=== PATIENT | male | born 2000 | race Caucasian/White ===

== ENCOUNTER 2022-03-18 19:39 | Emergency (ER) | payer MEDICAID ==
[2022-03-18 19:58] VITALS: BP 123/69
--- NOTE | 2022-03-18 20:21 | ED Physician Documentation ---
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 initially severe pain, localized to base of testicle, throbbing quality, nonradiating, better with elevating, worse with movement. denies hx of hernia. endorses some intermittent dysuria. has had pain like this before that self resolved. denies fever, abnormal discharge, foul smell or genital lesions. Review of Systems Constitutional: denies: Fever GI: denies: Abdominal Pain, Nausea : reports: Dysuria, Testicular pain. denies: Hematuria Skin: denies: Lesions Musculoskeletal: reports: Back pain (lower back) PD PAST MEDICAL HISTORY - Past Medical History Cardiovascular: Arrhythmia Respiratory: None Neuro: None Endocrine/Autoimmune: None GI: None : None HEENT: None Psych: Depression, Anxiety, Bipolar disorder Musculoskeletal: None Derm: None - Past Surgical History Past Surgical History: No - Present Medications Home Medications: Ambulatory Orders Medication Instructions Recorded Confirmed No Known Home Medications 03/18/22 03/18/22 - Allergies Allergies/Adverse Reactions: Allergies Allergy/AdvReac Type Severity Reaction Status Date / Time No Known Drug Allergies Allergy Verified 03/18/22 19:58 - Social History Does the pt smoke?: No Smoking Status: Never smoker Does the pt drink ETOH?: No Does the pt have substance abuse?: Yes - Immunizations Immunizations are current?: Yes PD ED PE NORMAL - Vitals Vital signs reviewed: Yes - General General: Alert and oriented X 3, No acute distress, Well developed/nourished - HEENT HEENT: Atraumatic, PERRL, EOMI - Abdomen Abdomen: Non tender - Male Male : Front Tender present (SONNY ribera), Other (normal ext male genitalia. circumcised penis without lesion or deformity. BL cremaster reflex intact. R testicle nontender. L testicle tender to palpation, improving with elevation. normal testicular lie) - Rectal Rectal: Deferred - Back Back: No CVA TTP - Derm Derm: Normal color, Warm and dry, No rash - Extremities Extremities: No deformity - Neuro Neuro: No motor deficit, No sensory deficit - Psych Psych: Normal mood, Normal affect Results - Vitals Vitals: Vital Signs - 24 hr 03/18/22 19:56 Temperature 37.1 C Heart Rate 78 Respiratory 18 Rate Blood Pressure 123/69 O2 Saturation 97 Oxygen O2 Source Room air - Labs Labs: Laboratory Tests 03/18/22 19:53 Urine Color YELLOW Urine Clarity CLEAR Urine pH 6.5 Ur Specific [place] 1.015 Urine Protein NEGATIVE Urine Glucose (UA) NEGATIVE Urine Ketones NEGATIVE Urine Occult Blood NEGATIVE Urine Nitrite NEGATIVE Urine Bilirubin NEGATIVE Urine Urobilinogen 1 (NORMAL) Ur Leukocyte Esterase NEGATIVE Ur Microscopic Review NOT INDICATED Urine Culture Comments NOT INDICATED PD Medical Decision Making - ED course ED course: 22yM p/w L testicular pain. doubt torsion given normal testicular lie and normal cremaster reflex. will obtain u/s to eval for varicocoele or hydrocoele, u/a and STI testing. analgesia provided but patient declined. Patient left AMA prior to discussing results of u/s which showed no evidence of torsion. trace hydrocele detected. Departure - Departure Disposition: 07 Against Medical Advice Clinical Impression: Testicle pain Discharge Date/Time: 03/18/22 23:40
[2022-03-18] MEDS: KETOROLAC 30 MG/ML VIAL IM STA ×2 (20:26→20:27)
[2022-03-18 20:35] LABS: BILIRUBIN,URINE NEGATIVE (NEGATIVE); GLUCOSE, URINE (UA) NEGATIVE (NEGATIVE); KETONES,URINE (UA) NEGATIVE (NEGATIVE); LEUKOCYTE ESTERASE, URINE NEGATIVE (NEGATIVE); NITRITE,URINE NEGATIVE (NEGATIVE); OCCULT BLOOD,URINE NEGATIVE (NEGATIVE); PH,URINE 6.5 PH (5.0-7.5); PROTEIN,URINE NEGATIVE (NEGATIVE); UROBILINOGEN,URINE 1 (NORMAL) E.U./dL (NORMAL)
[2022-03-18 20:36] LABS: CLARITY,URINE CLEAR (CLEAR)
--- NOTE | 2022-03-18 22:03 | Ultrasound Report ---
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 Color and p ulse Doppler interrogation was performed of both testicles. COMPARISON: None. FINDINGS: Right: Testicle is normal in size at 3.9 x 2.0 x 2.3 cm, and homogenous in echotexture. Epididymis is normal in overall size and morphology. No varicoceles. Trace hydrocele Overlying scrotal skin is normal in thickness. Left: Testicle is normal in size at 4.0 x 2.2 x 2.7 cm, and homogeneous in echotexture. Epididymis 7 x 4 x 5 mm epididymal cyst. Slight appearance of increased vascularity within the epididymis. No va ricoceles. Trace hydrocele Overlying scrotal skin is normal in thickness. Doppler: Color and pulse Doppler demonstrate normal and symmetric arterial flow in both testicles. IMPRESSION: Slight appearance of increased vascularity within the left epididymis suggestive of epididymitis. No evidence of testicular torsion at time of exam. Intermittent torsion cannot be excluded. Reviewed by: Erin Cid MD on 03/18/2022 10:02 PM PST Approved by: Erin Cid MD on 03/18/2022 10:02 PM PST Station ID: [id number]
[2022-03-18 23:34] LABS: CHLAMYDIA TRACHOMATIS DNA NEGATIVE (NEGATIVE); NEISSERIA GONORRHOEAE DNA NEGATIVE (NEGATIVE)
== END 2022-03-18 23:40 | disposition left against medical advice (07) ==
LOC: ED 19:39
DX: N50.812 Left testicular pain (principal); Z53.29 Procedure and treatment not carried out because of patient's decision for other reasons
CPT/HCPCS: 81001; 81003; 87086; 87491; 87591; 87661; 93975; 99282; 99284

== ENCOUNTER 2023-04-05 14:44 | Emergency (ER) | payer MEDICAID ==
--- NOTE | 2023-04-05 15:13 | ED Physician Documentation ---
PD HPI HEAD INJURY - Stated complaint Stated Complaint: FALL - Chief complaint Chief Complaint: Trauma Hd/Nk - History obtained from History obtained from: Patient, Friend - History of Present Illness Mechanism of head injury: Fell Where head injury occurred: Street Timing - onset: Today Location of injury: Right Quality of pain: Pain, Throbbing Associated symptoms: LOC, AMS, Amnesia, Other (hard time focusing, concentrating, dizziness, no nausea, + headache). No: Neck pain, Paresthesias, Seizures, Ear drainage, Nasal drainage Symptoms improve with: Rest, Position Symptoms worsen with: Palpation, Movement Contributing factors: No: Anticoagulated Similar symptoms before: Has not had sx before Recently seen: Not recently seen - Additional information Additional information: Edmundo Ames is a previously well 23-year-old male who slipped on ice today fell forward landing on the right side of his face. He broke his glasses and has a laceration above his right eye. He is having some difficult time focusing he is has some nausea and he has some dizziness and lightheadedness. He is having some difficulty concentrating. Review of Systems Constitutional: denies: Fever Eyes: denies: Decreased vision Ears: denies: Ear pain Nose: denies: Rhinorrhea / runny nose, Congestion Throat: denies: Sore throat Respiratory: denies: Cough GI: denies: Vomiting, Diarrhea : denies: Dysuria, Frequency PD PAST MEDICAL HISTORY - Past Medical History Past Medical History: Yes Cardiovascular: Arrhythmia Respiratory: None Neuro: None Endocrine/Autoimmune: None GI: None : None HEENT: None Psych: Depression, Anxiety, Bipolar disorder Musculoskeletal: None Derm: None - Past Surgical History Past Surgical History: No - Present Medications Home Medications: Ambulatory Orders Medication Instructions Recorded Confirmed No Known Home Medications 03/18/22 04/05/23 - Allergies Allergies/Adverse Reactions: Allergies Allergy/AdvReac Type Severity Reaction Status Date / Time No Known Drug Allergies Allergy Verified 04/05/23 15:00 - Social History Does the pt smoke?: No Smoking Status: Never smoker Does the pt drink ETOH?: No Does the pt have substance abuse?: Yes - Immunizations Immunizations are current?: Yes PD ED PE NORMAL - Vitals Vital signs reviewed: Yes (hypertensive) - General General: Well developed/nourished, Other (The patient is hyperventilating and appears anxious. Pale in color. Makes effort to see. ) - HEENT HEENT: PERRL, EOMI, Other (abrasion and laceration above the right eye through the eyebrow. 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, No motor deficit, No sensory deficit, Other (There is 2 second speech delay) Eye Opening: Spontaneous Motor: Obeys Commands Verbal: Oriented GCS Score: 15 - Psych Psych: Other (mood is anxious affect is blunted) Results - Vitals Vitals: Vital Signs - 24 hr 04/05/23 04/05/23 04/05/23 15:00 15:16 15:36 Temperature 36.7 C 36.7 C Heart Rate 77 117 H 124 H Respiratory 22 24 28 H Rate Blood Pressure 121/90 H 132/66 H 131/98 H O2 Saturation 100 100 100 Oxygen O2 Source Room air - Rads (name of study) CT head without Relevant Findings:: Prelim report reviewed (Impression: No acute intracranial pathology.), EMP independent interpretation of test, See rad report Procedures - Laceration (location) forehead Length in cm: 5.5 Wound type: Stellate, Into subcut fat, Clean Neurovascular status: Sensory intact, Motor intact, Vascular intact Anesthesia: Lidocaine 1% Wound preparation: Hibiclens, Irrigated copiously NS, Debrided moderately, Wound explored, To the base, Multiple flaps aligned Skin layer closure: Nylon, Interrupted, Size #-0 - enter number (5-0) Other: Patient tolerated well, No complications, Neurovascular intact PD Medical Decision Making - ED course Complexity details: reviewed results, re-evaluated patient, considered differential, d/w patient, d/w family ED course: 23-year-old male with a fall on the ice presents to the emergency department a laceration over his right thigh. The laceration itself is cleansed and sutured without incident. The patient does exhibit significant anxiety and appears to be hyperventilating on arrival to the emergency department. He is hyperventilating enough that he gets some twitching body movements and this triggered a CT scan of the head which was without pathologic finding. Departure - Departure Disposition: 01 Home, Self Care Clinical Impression: Concussion Qualifiers: Encounter type: initial encounter Loss of consciousness presence/duration: with LOC of 30 min or less Qualified Code(s): S06.0X1A - Concussion with loss of consciousness of 30 minutes or less, initial encounter Facial laceration Qualifiers: Encounter type: initial encounter Qualified Code(s): S01.81XA - Laceration without foreign body of other part of head, initial encounter Condition: Stable Instructions: ED Laceration Facial Sutr Tape, ED Concussion Follow-Up: [facility] [place] [Provider Group] Comments: Edmundo, today it does look like you had a concussion and we were able to perform a CT scan of your head which did not demonstrate any internal abnormalities. The expectation is that the symptoms from the concussion will resolve within the next several days. The laceration to the forehead will need to have sutures removed from it in about 5 days. I have given you the number of a clinic in [place] to follow-up with. Forms: PCP List
[2023-04-05] MEDS ORDERED: LIDOCAINE 1% 2 ML VIAL SUBQ STA (15:21)
--- NOTE | 2023-04-05 16:33 | CT Report ---
PROCEDURE: Head WO INDICATIONS: fall on ice, altered LOC, head strike TECHNIQUE: Noncontrast 4.5 mm thick angled axial sections acquired from the foramen magnum to the vertex. For r adiation dose reduction, the following was used: automated exposure control, adjustment of mA and/or kV according to patient size. COMPARISON: None. FINDINGS: Image quality: Excellent. CSF spaces: Basal cisterns are patent. No extra-axial fluid collections. Ventricles are normal in size and shape. Brain: No midline shift. No intracranial masses or hemorrhage. Ordoñez-white matter interface is norm al. Skull and face: Calvarium and visualized facial bones are intact, without suspicious lesions. Sinuses: Visualized sinuses and mastoids are clear. IMPRESSION: No acute intracranial pathology. Reviewed by: Pop Tan MD on 04/05/2023 3:32 PM [facility] Approved by: Pop Tan MD on 04/05/2023 3:32 PM [facility] Station ID: [id number]
[2023-04-05] MEDS ORDERED: TETANUS/DIPHTHERIA/PERTUSSIS 0.5 ML SYRINGE IM ONE (16:48)
[2023-04-05 17:08] VITALS: BP 110/67; O2SAT 97
== END 2023-04-05 17:02 | disposition home or self-care (01) ==
LOC: ED 14:44
DX: S06.0X1A Concussion with loss of consciousness of 30 minutes or less, initial encounter (principal); S01.81XA Laceration without foreign body of other part of head, initial encounter; W00.0XXA Fall on same level due to ice and snow, initial encounter; Z23 Encounter for immunization
CPT/HCPCS: 12014; 90471; 99283; 99284